=== PATIENT | male | born 1985 ===

== ENCOUNTER 2018-04-14 00:38 | Emergency (ER) | payer SELFPAY ==
[2018-04-14 01:07] VITALS: BMI 20.7
[2018-04-14 01:10] VITALS: O2SAT 98
--- NOTE | 2018-04-14 01:13 | C.PDOC ---
Time Seen by Provider: 04/14/18 01:13 Chief Complaint (Nursing): Headache Past Medical History Vital Signs: Last Vital Signs Temp 98.1 F 04/14/18 01:06 Pulse 80 04/14/18 01:06 Resp 18 04/14/18 01:06 BP 132/79 04/14/18 01:06 Pulse Ox 98 04/14/18 01:06 - Social History Hx Alcohol Use: Yes Hx Substance Use: No - Immunization History Hx Tetanus Toxoid Vaccination: No Hx Influenza Vaccination: No Hx Pneumococcal Vaccination: No ED Course And Treatment O2 Sat by Pulse Oximetry: 98 Disposition Counseled Patient/Family Regarding: Studies Performed, Diagnosis - Disposition Disposition Time: 01:13
--- NOTE | 2018-04-14 01:22 | C.PDOC ---
History Of Present Illness patient presents with left sided headache, but upon furthe discussion, it is actually left lower kevyn pain radiating towards the ear and giving him the headache. No f/c/n/v. no visual changes . tolerating po, although pain with cold drinks Time Seen by Provider: 04/14/18 01:13 Chief Complaint (Nursing): Headache History Per: Patient History/Exam Limitations: no limitations Patient States: Other (toothache) Severity: Moderate Pain Scale Rating Of: 4 Past Medical History Reviewed: Historical Data, Nursing Documentation, Vital Signs Vital Signs: Last Vital Signs Temp 98.1 F 04/14/18 01:06 Pulse 80 04/14/18 01:06 Resp 18 04/14/18 01:06 BP 132/79 04/14/18 01:06 Pulse Ox 98 04/14/18 01:06 Family History: States: No Known Family Hx - Social History Hx Alcohol Use: Yes Hx Substance Use: No - Immunization History Hx Tetanus Toxoid Vaccination: No Hx Influenza Vaccination: No Hx Pneumococcal Vaccination: No Review Of Systems Constitutional: Negative for: Fever, Chills Eyes: Positive for: Vision Change ENT: Positive for: Mouth Pain Physical Exam - Physical Exam Appears: Non-toxic, No Acute Distress Skin: Warm, Dry Head: Normacephalic Eye(s): bilateral: Normal Inspection Ear(s): Bilateral: Normal Teeth: Tender To Palpation (left lower jaw) Gingiva: Swelling (left lower jaw), Tender Throat: No Erythema Neck: Supple ED Course And Treatment - Laboratory Results Result Diagrams: 04/14/18 02:44 04/14/18 02:44 O2 Sat by Pulse Oximetry: 98 Pulse Ox Interpretation: Normal Reevaluation Time: 03:27 Reassessment Condition: Improved Disposition Counseled Patient/Family Regarding: Studies Performed, Diagnosis, Need For Followup, Rx Given - Disposition Referrals: [facility] [Outside] [facility] [Outside] Disposition: HOME/ ROUTINE Disposition Time: 01:19 Condition: FAIR Additional Instructions: please follow up with your dentist Prescriptions: Ibuprofen [Motrin Tab] 800 mg PO TID #15 tab Penicillin VK [Penicillin VK Tab] 2 tab PO BID #40 tab Instructions: Tooth Decay, Adult (DC), Dental Pain (DC) Forms: CareFamily (German) - Clinical Impression Clinical Impression: Pain, dental
[2018-04-14 02:48] LABS: BASO % 0.4 % (0.0-2.0); EOS # 0.1 K/uL (0.0-0.7); EOS % 0.7 % (0.0-4.0); HEMOGLOBIN 14.2 g/dL (12.0-18.0); LYMPH # 1.5 K/uL (1.0-4.3); LYMPH % 14.6 % (20.0-40.0); MEAN CELL VOLUME 90.6 fL (80.0-94.0); MEAN CORPUSCULAR HEMOGLOBIN 31.3 pg (27.0-31.0); MEAN CORPUSCULAR HGB CONC 34.5 g/dL (33.0-37.0); MEAN PLATELET VOLUME 9.4 fL (7.2-11.7); MONO # 0.4 K/uL (0.0-0.8); MONO % 4.2 % (0.0-10.0); NEUT # 8.3 K/uL (1.8-7.0); NEUT % 80.1 % (50.0-75.0); RBC 4.54 Mil/uL (4.40-5.90); RED CELL DISTRIBUTION WIDTH 13.5 % (11.5-14.5); WHITE BLOOD COUNT 10.3 K/uL (4.8-10.8)
[2018-04-14 03:02] LABS: BLOOD UREA NITROGEN 19 mg/dL (9-20); CALCIUM 9.6 mg/dl (8.6-10.4); GFR NON-AFRICAN AMERICAN > 60
[2018-04-14 03:37] VITALS: BP 111/69; PULSE 70; RESP 20; TEMP 98.6
== END 2018-04-14 03:37 | disposition home or self-care (01) ==
LOC: C.ER 00:38
DX: K08.89 Other specified disorders of teeth and supporting structures (principal)
CPT/HCPCS: 80048; 85025; 96374; 99285; J1885